=== PATIENT | male | born 1980 | race Caucasian/White ===

== ENCOUNTER → 2017-09-27 | Outpatient (CLI) | payer OTHER ==
--- NOTE | 2017-09-27 12:32 | EST ---
EXERCISE STRESS DATE OF SERVICE: 09/27/2017 AGE: 37 SEX: Male HT: 6' WT: 200 PROTOCOL: JOE STAGE: IV DURATION OF EXERCISE: 12 minutes HEART RATE REST: 96 BLOOD PRESSURE REST: 127/89 MAXIMUM HEART RATE ACHIEVED: 165 MAXIMUM BLOOD PRESSURE: 180/78 85% MPHR: 155 100% MPHR: 182 METS: 12.7 INDICATIONS: Abnormal EKG. CLINICAL INFORMATION: Chest pain. STRESS DATA: Pretesting physical examination showed a heart rate of 96, pressure is 127/89 mmHg. Baseline EKG showed sinus mechanism. The patient exercised on the treadmill according to Joe protocol for a total of 12 minutes and achieved 12.7 METs. Max heart rate was 165, which is about 90% of maximum predicted heart rate. Maximum blood pressure was 180/78 mmHg. Clinically, the patient did not have any symptoms. He did have good augmentation in the blood pressure in response to exercise. CONCLUSION: 1. Excellent exercise capacity. 2. Normal EKG in response to exercise. 3. Normal exercise treadmill stress test for the patient. MMODL / IJN: [id number] /
== END | disposition home or self-care (01) ==
LOC: RADNMMAIN 10:55
PROVIDERS: ATTEND Internal Medicine
DX: R07.9 Chest pain, unspecified (principal)
CPT/HCPCS: 93017